=== PATIENT | male | born 1975 | race Caucasian/White ===

== ENCOUNTER 2021-05-02 18:40 | Emergency (ER) | payer OTHER ==
[~2021-05-02] VITALS: Ht 193 cm; Wt 94.4 kg
[~2021-05-02 18:40] MED LIST: OXYC1TAB12 PO
[2021-05-02 18:54] VITALS: BP 145/96
[2021-05-02] MEDS ORDERED: FLUORESCEIN OPHTHALMIC 1 MG STRIP ONE (19:53)
[2021-05-02] MEDS ORDERED: PROPARACAINE OPHTH 0.5%, 15ML ONE (19:53)
[2021-05-02] MEDS ORDERED: FLUORESCEIN OPHTHALMIC 1 MG STRIP EACHEYE ONE (20:00)
[2021-05-02] MEDS ORDERED: PROPARACAINE OPHTH 0.5%, 15ML EACHEYE ONE (20:00)
== END 2021-05-02 20:34 | disposition home or self-care (01) ==
LOC: ED 20:32
DX: H57.11 Ocular pain, right eye (principal); H00.011 Hordeolum externum right upper eyelid
CPT/HCPCS: 99283